=== PATIENT | female | born 1990 | race Two or more races ===

== ENCOUNTER 2024-10-08 10:20 | Emergency (ER) | payer OTHER ==
[~2024-10-08] VITALS: Ht 160 cm; Wt 59.0 kg
[2024-10-08] MEDS ORDERED: PRENA1 TRUE CO1 EACH (11:08)
[2024-10-08] MEDS ORDERED: GUAIFENESIN 100 MG/5 ML BLIST.PACK PO STA (11:35)
[2024-10-08] MEDS ORDERED: CETIRIZINE HCL 5 MG/5 ML ML PO STA (11:38)
[2024-10-08 14:08] LABS: HEMATOCRIT 34.6 % (36.0-45.00); HEMOGLOBIN 11.6 g/dL (12.0-15.00); MEAN CELL VOLUME 80.4 fL (80.00-100.00); MEAN CORPUSCULAR HGB CONC 33.6 g/dl (32.0-36.0); PLATELET COUNT 148 K/uL (150-450); RED CELL DISTRIBUTION WIDTH 13.9 % (11.5-14.5)
[2024-10-08] MEDS ORDERED: GUAIFENESI100 MG/52 PO (17:25)
[2024-10-08] MEDS ORDERED: ZYRTEC10 MG PO (17:26)
== END 2024-10-08 17:39 | disposition home or self-care (01) ==
LOC: ER 10:22
PROVIDERS: General Practice
DX: O99.511 Diseases of the respiratory system complicating pregnancy, first trimester (principal); J06.9 Acute upper respiratory infection, unspecified; Z20.822 Contact with and (suspected) exposure to COVID-19; Z3A.11 11 weeks gestation of pregnancy

== ENCOUNTER 2024-12-04 11:48 | Outpatient (CLI) | payer OTHER ==
[~2024-12-04 11:48] MED LIST: GUAIFENESI100 MG/52 PO; PRENA1 TRUE CO1 EACH; ZYRTEC10 MG PO
== END 2024-12-04 11:50 | disposition home or self-care (01) ==
LOC: PRENATAL 11:48
PROVIDERS: ATTEND Obstetrics & Gynecology Maternal & Fetal Medicine
DX: O44.00 Complete placenta previa NOS or without hemorrhage, unspecified trimester (principal); Z3A.20 20 weeks gestation of pregnancy

== ENCOUNTER → 2025-03-09 11:00 | Outpatient (CLI) | payer OTHER | END | disposition home or self-care (01) | LOC: PRENATAL 10:00 | PROVIDERS: ATTEND Obstetrics & Gynecology Maternal & Fetal Medicine | DX: O26.849 Uterine size-date discrepancy, unspecified trimester (principal); O36.8199 Decreased fetal movements, unspecified trimester, other fetus; O36.1999 Maternal care for other isoimmunization, unspecified trimester, other fetus; Z3A.33 33 weeks gestation of pregnancy ==

== ENCOUNTER 2025-04-07 15:31 | Inpatient (IN) | payer OTHER ==
[~2025-04-07] VITALS: Ht 160 cm; Wt 73.5 kg
[2025-04-07 15:57] VITALS: BP 117/71
[2025-04-07 16:59] LABS: BASO % 0.3 % (0.1-1.2); EOS # 0.04 (0.04-0.54); EOS % 0.4 % (0.7-7.0); HEMATOCRIT 29.5 % (34.1-44.9); HEMOGLOBIN 9.6 g/dL (11.2-15.7); LYMPH # 1.15 (1.18-3.74); LYMPH % 11.9 % (19.3-53.1); MEAN CORPUSCULAR HEMOGLOBIN 24.7 pg (25.6-32.2); MONO # 0.52 (0.24-0.82); MONO % 5.4 % (4.7-12.5); NEUT # 7.89 (1.56-6.13); NEUT % 81.5 % (34.0-71.1); PLATELET COUNT 183 K/uL (163-369); RED BLOOD COUNT 3.88 M/uL (3.93-5.22); RED CELL DISTRIBUTION WIDTH 14.6 % (11.6-14.4)
[2025-04-07 17:00] LABS: PH,URINE 6.5 (5.0-8.0); URINE APPEARANCE Clear; URINE BILIRRUBIN Negative (NEGATIVE); URINE BLOOD Moderate; URINE COLOR Yellow; URINE GLUCOSE Negative (NEGATIVE); URINE KETONE 15 (NEGATIVE); URINE LEUKOCYTE Trace; URINE NITRATE Negative; URINE PROTEIN 30 (NEGATIVE); URINE UROBILINOGEN 0.2 E.U./dl
[2025-04-07 17:04] LABS: URINE BACTERIA 3160.2 uL (0.0-1933); URINE EPITHELIAL CELLS 15.3 uL (0.0-38.8); URINE RBC 4.8 uL (0.0-20.8); URINE WBC 37.9 uL (0.0-23.2)
[2025-04-07] MEDS ORDERED: RINGERS SOLUTION,LACTATED 1,000 ML IV SCH (17:15)
[2025-04-07 17:16] LABS: INR < 0.93; PARTIAL THROMBOPLASTIN TIME 22.3 SECONDS (22.0-34.0)
[2025-04-07 17:23] LABS: ALBUMIN 2.9 gm/dL (3.4-5.0); BILIRUBIN TOTAL 0.17 mg/dL (0.3-1.2); CALCIUM 8.7 mg/dL (8.5-10.1); CREATININE SERUM 0.6 mg/dL (0.55-1.02); GFR 114.43; GLOBULINA 3.9 G/DL (2.4-3.5); POTASSIUM 4.15 mEq/L (3.5-5.1); TOTAL PROTEIN 6.8 gm/dL (6.4-8.2)
[2025-04-07 18:17] LABS: URINE CAST 0.14 uL (0.0-1.40)
[2025-04-07 19:37] VITALS: BP 135/86
[2025-04-07 23:12] VITALS: BP 134/80
[2025-04-08 04:01] VITALS: BP 128/85
[2025-04-08 06:22] VITALS: BP 113/67; O2SAT 100
[2025-04-08] MEDS ORDERED: SOD FERRIC GLUC COMPLX/SUCROSE 125 MG in 0.9 % SODIUM CHLORIDE 100 ML IV SCH (09:00)
[2025-04-08 12:09] VITALS: BP 122/70
[2025-04-08 15:25] VITALS: BP 119/80
[2025-04-08 16:37] LABS: CREATININE URINE 54.8 MG/DL; URINE PROT QUANT 24 HR 302.25 MG/24HR (42-225); URINE PROT QUANT 24HR 15.5 MG/DL
[2025-04-08] MEDS ORDERED: MISOPROSTOL 25 MCG/4 ML GEL.W.APPL VAG ONE (17:00)
[2025-04-08 17:13] LABS: CREATINE CLEARANCE 137.7 ML/MIN (97-137); CREATININE SERUM 0.54 mg/dL (0.6-1.0)
[2025-04-08 19:20] VITALS: BP 127/81
[2025-04-08 23:17] VITALS: BP 121/83
[2025-04-09 03:28] VITALS: BP 117/71
[2025-04-09 07:17] VITALS: BP 113/64
[2025-04-09] MEDS ORDERED: MISOPROSTOL 25 MCG/4 ML GEL.W.APPL VAG ONE (07:30)
[2025-04-09 11:03] VITALS: BP 148/67
[2025-04-09] MEDS ORDERED: OXYTOCIN 20 UNITS/500ML RL PIGGYBAG IV ONE (11:11)
[2025-04-09] MEDS ORDERED: OXYTOCIN 500 ML IV SCH (11:15)
[2025-04-09] MEDS ORDERED: MORPHINE SULFATE 4 MG/ML VIAL IV ONE (13:30)
[2025-04-09 15:42] VITALS: BP 139/76
[2025-04-09] MEDS ORDERED: CHLORHEXIDINE GLUCONATE 120 ML BOTTLE TOP ONE (16:22)
[2025-04-09] MEDS ORDERED: ERYTHROMYCIN BASE OPHT 1GM EACH TUBE OP ONE (16:22)
[2025-04-09] MEDS ORDERED: OXYTOCIN 20 UNITS/1000ML RL PIGGYBAG IV ONE (16:22)
[2025-04-09] MEDS ORDERED: LIDOCAINE HCL 1% 10ML VIAL ONE (16:22)
[2025-04-09] MEDS ORDERED: OXYTOCIN 1,000 ML IV SCH (18:45)
[2025-04-09] MEDS ORDERED: ACETAMINOPHEN 500 MG GEL..CAP PO PRN (18:45)
[2025-04-09 21:25] VITALS: BP 145/77
[2025-04-09 22:13] LABS: BASO % 0.1 % (0.1-1.2); HEMATOCRIT 28.9 % (34.1-44.9); HEMOGLOBIN 9.2 g/dL (11.2-15.7); LYMPH # 0.54 (1.18-3.74); MEAN CORPUSCULAR HEMOGLOBIN 23.9 pg (25.6-32.2); MONO % 3.9 % (4.7-12.5); NEUT # 16.84 (1.56-6.13); NEUT % 92.6 % (34.0-71.1); PLATELET COUNT 178 K/uL (163-369); RED BLOOD COUNT 3.85 M/uL (3.93-5.22); RED CELL DISTRIBUTION WIDTH 14.6 % (11.6-14.4)
[2025-04-10 00:03] VITALS: BP 141/78
[2025-04-10 08:00] VITALS: BP 103/74
[2025-04-10] MEDS ORDERED: PNV,CALCIUM 72/IRON/FOLIC ACID 1 TAB TABLET PO SCH (09:00)
[2025-04-10 15:50] VITALS: BP 134/74
[2025-04-11] VITALS: BP 138/93
[2025-04-11 08:00] VITALS: BP 110/76
[2025-04-11] MEDS ORDERED: FF) RHO(D) IMMUNE GLOBULIN (POM) IM ONE (14:30)
== END 2025-04-11 14:34 | disposition home or self-care (01) | DRG 807 ==
LOC: OBS/DEL 15:31 → LDR 04-08 16:54 → OB/GYN 04-09 20:55
PROVIDERS: ADMIT Student in an Organized Health Care Education/Training Program; ATTEND Student in an Organized Health Care Education/Training Program
PROC: 4A1HXCZ Monitoring of Products of Conception, Cardiac Rate, External Approach (ICD-10-PCS; 2025-04-08)
PROC: 3E0P7VZ Introduction of Hormone into Female Reproductive, Via Natural or Artificial Opening (ICD-10-PCS; 2025-04-08)
PROC: BY4FZZZ Ultrasonography of Third Trimester, Single Fetus (ICD-10-PCS; 2025-04-08)
PROC: 10E0XZZ Delivery of Products of Conception, External Approach (ICD-10-PCS; principal; 2025-04-09)
PROC: 3E033VJ Introduction of Other Hormone into Peripheral Vein, Percutaneous Approach (ICD-10-PCS; 2025-04-09)
PROC: 0HQ9XZZ Repair Perineum Skin, External Approach (ICD-10-PCS; 2025-04-09)
PROC: 0UQG7ZZ Repair Vagina, Via Natural or Artificial Opening (ICD-10-PCS; 2025-04-09)
DX: O70.0 First degree perineal laceration during delivery (principal); Z37.0 Single live birth; O26.843 Uterine size-date discrepancy, third trimester; O36.8130 Decreased fetal movements, third trimester, not applicable or unspecified; O14.94 Unspecified pre-eclampsia, complicating childbirth; Z3A.37 37 weeks gestation of pregnancy